=== PATIENT | female | born 1975 | race Two or more races ===

== ENCOUNTER 2018-10-16 19:56 | Emergency (ER) | payer OTHER ==
[~2018-10-16] VITALS: Ht 157.5 cm; Wt 52.6 kg
[2018-10-17] MEDS ORDERED: ZOFRAN4 MG PO (06:29)
[2018-10-17] MEDS ORDERED: PEPCID40 MG PO (06:29)
== END 2018-10-17 06:41 | disposition home or self-care (01) ==
LOC: ER 19:56
DX: K29.70 Gastritis, unspecified, without bleeding (principal)